=== PATIENT | female | born 1975 | race African-American/Black ===

== ENCOUNTER 2016-07-27 08:55 | Emergency (ER) | payer OTHER ==
[~2016-07-27 08:55] MED LIST: ADVAIR; ADVAIR 2501 DISK W/D PO; ALBUTEROL17 GM INH; BACTRIM DS TABL1 TA1 PO; BACTRIM DS TABL1 TAB PO; CLEOCIN HCL300 M1 PO; IBUPROFEN800 MG PO; KEFLEX PO; LEVAQUIN PO; LORTAB 5/500 TA1 TA1 PO; METFORMIN PO; ROBITUSSIN A-C-S1 ML PO; VIBRAMYCIN100 M1 PO; VICODIN 5/500 T1 TAB PO; VICODIN PO; ZITHROMAX PO
== END 2016-07-27 09:00 | disposition home or self-care (01) ==
LOC: CFTX 08:55
DX: L02.412 Cutaneous abscess of left axilla (principal); E11.9 Type 2 diabetes mellitus without complications; F17.210 Nicotine dependence, cigarettes, uncomplicated
CPT/HCPCS: 10060; 99283

== ENCOUNTER 2017-01-12 01:10 | Emergency (ER) | payer OTHER | END 2017-01-12 04:36 | disposition home or self-care (01) | LOC: CED 01:10 | DX: L02.411 Cutaneous abscess of right axilla (principal); E11.9 Type 2 diabetes mellitus without complications; F17.210 Nicotine dependence, cigarettes, uncomplicated | CPT/HCPCS: 10060; 84703; 99283 ==